=== PATIENT | female | born 1965 | race African-American/Black ===

== ENCOUNTER 2022-08-13 18:05 | Emergency (ER) | payer OTHER ==
[~2022-08-13] VITALS: Ht 157.5 cm; Wt 51.7 kg
[2022-08-13 18:06] VITALS: BP 110/68; PULSE 73; RESP 20; TEMP 98; O2SAT 99
--- NOTE | 2022-08-13 18:20 | NUR ---
Pt currently in room. Awaiting to be seen by .
--- NOTE | 2022-08-13 18:22 | NUR ---
EKG done at [facility].
--- NOTE | 2022-08-13 18:51 | NUR ---
at evaluating the pt. No distress noted.
--- NOTE | 2022-08-13 19:09 | NUR ---
Lab came to draw pt. Pt OOB to the restroom. fitness technician at BS performing CXR at [facility].
--- NOTE | 2022-08-13 19:18 | NUR ---
Pt endorsed to Olamide SHAHID night charge nurse. Pt endorsed in stable condtion. Lab at drawing the pt's labs.
[2022-08-13 19:24] LABS: BASOPHILS # (AUTO) 0.1 K/uL (0.00-0.22); EOSINOPHILS # (AUTO) 0.1 K/uL (0-0.4); EOSINOPHILS % (AUTO) 2.3 % (0.0-4.0); HEMATOCRIT 34.1 % (36-48); HEMOGLOBIN 11.5 g/dL (12.0-16.0); LYMPHOCYTES # (AUTO) 2.3 K/uL (2.5-16.5); LYMPHOCYTES % (AUTO) 45.5 % (20.5-51.1); MEAN CORPUSCULAR HEMOGLOBIN 29 pg (27-31); MEAN CORPUSCULAR HGB CONC 34 g/dL (33-37); MEAN CORPUSCULAR VOLUME 85.1 fL (80-94); MONOCYTES # (AUTO) 0.2 K/uL (0.8-1.0); MONOCYTES % (AUTO) 4.6 % (1.7-9.3); NEUTROPHILS # (AUTO) 2.4 K/uL (1.8-7.7); NEUTROPHILS % (AUTO) 46.6 % (42.2-75.2); PLATELET COUNT (AUTO) 327 K/uL (140-450); RED BLOOD CELL COUNT(AUTO) 4.01 MIL/uL (4.20-5.40); RED CELL DISTRIBUTION WIDTH 13.5 % (11.6-13.7); WHITE BLOOD COUNT (AUTO) 5.1 K/uL (4.8-10.8)
--- NOTE | 2022-08-13 19:32 | NUR ---
walked urine to lab.
[2022-08-13 19:57] LABS: ALBUMIN 3.9 g/dL (3.4-5.0); ANION GAP 8.7 (8-16); ASPARTATE AMINOTRANSFERASE 29 U/L (15-37); CARBON DIOXIDE 34.5 mmol/L (21-32); CHLORIDE 103 mmol/L (98-107); CREATININE 0.8 mg/dL (0.6-1.3); GFR ARICAN-AMERICAN 96 mL/min (>90); GLUCOSE 102 mg/dL (74-106); POTASSIUM 3.2 mmol/L (3.5-5.1); SODIUM SERUM 143 mmol/L (136-145); TOTAL BILIRUBIN 0.2 mg/dL (0.0-1.0); UREA NITROGEN, BLOOD 11 mg/dL (7-18)
[2022-08-13] MEDS ORDERED: POTASSIUM CHLORIDE 10 MEQ TABER PO ONE (20:00)
[2022-08-13 20:17] VITALS: BP 124/68; PULSE 62; RESP 16; TEMP 98.1; O2SAT 100
--- NOTE | 2022-08-13 20:17 | NUR ---
FIRST CONTACT WITH PT FOR DC ONLY. PT A&OX4, RR EVEN AND UNLABORED. DENIES ANY PAIN AT THIS TIME. VSS. PT GIVEN DC INSTRUCTIONS WITH FULL RETURNED VERBAL UNDERSTANDING.
--- NOTE | 2022-08-13 20:17 | NUR ---
Patient discharged with v/s stable. Written and verbal after care instructions given and explained. Patient verbalized understanding. Ambulatory with steady gait. All questions addressed prior to discharge. Advised to follow up with PMD.
== END 2022-08-13 20:17 | disposition home or self-care (01) ==
LOC: MED 18:05
DX: R07.89 Other chest pain (principal)
CPT/HCPCS: 36415; 71045; 80053; 84484; 85025; 99284